=== PATIENT | male | born 1945 | race Caucasian/White ===

== ENCOUNTER 2016-09-11 12:56 | Inpatient (IN) | payer MEDICARE ==
[2016-09-11] MEDS ORDERED: IOPAMIDOL 300 (61%) 100 ML VIAL IV ONE (12:57)
[2016-09-11 13:45] LABS: ABSOLUTE NEUTROPHIL COUNT 7.4 K/mm3 (1.8-7.7); BASO # 0.1 K/mm3 (0.0-0.2); BASO % 0.5 % (0.2-1.0); EOS # 0.1 (0.0-0.5); EOS % 0.8 % (0.9-2.9); HEMATOCRIT 48.5 % (32.0-52.0); HEMOGLOBIN 16.6 gm/l (14.0-18.0); IMM NEUT% 0.3 % (0-1); LYMPH % 17.9 % (15-45); MEAN CELL VOLUME 90.5 fl (80.0-94.0); MEAN CORPUSCULAR HGB CONC 34.2 g/dl (33.0-37.0); MONO # 1.4 (0.0-0.8); NEUT % 67.5 % (43-75); PLATELET COUNT 196 K/mm3 (130-400); RED CELL DISTRIBUTION WIDTH 13.2 % (11.5-14.5)
[2016-09-11] MEDS ORDERED: ONDANSETRON 4 MG/2ML 2 ML VIAL ONE (13:45)
[2016-09-11] MEDS ORDERED: NALBUPHINE HCL 10 MG/ML AMP ONE (13:46)
[2016-09-11 13:57] LABS: ALB/GLOB RATIO 1.4 (>1.0); ALBUMIN 4.3 gm/dL (3.5-5.7); CALCIUM 9.5 mg/dL (8.6-10.3)
[2016-09-11 14:37] LABS: SPECIFIC GRAVITY 1.025 (1.001-1.030); URINE BILIRUBIN NEGATIVE (NEGATIVE); URINE BLOOD NEGATIVE (NEGATIVE); URINE GLUCOSE (UA) NEGATIVE (NEGATIVE); URINE LEUKOCYTE ESTERASE NEGATIVE (NEGATIVE); URINE NITRITE NEGATIVE (NEGATIVE); URINE PROTEIN TRACE (NEGATIVE); URINE UROBILINOGEN NORMAL (0-1 mg/dl)
[2016-09-11 14:40] LABS: URINE COLOR ORANGE
[2016-09-11 14:41] LABS: URINE APPEARANCE CLEAR
--- NOTE | 2016-09-11 14:42 | CT ---
CT ABDOMEN AND PELVIS WITH CONTRAST HISTORY: Low abdominal pain x3 days. TECHNIQUE: Following intravenous administration of 100 mL Isovue-300, contiguous axial images were acquired from the lung bases to the ischial tuberosities. Oral contrast was not administered. COMPARISON:None. FINDINGS: LUNG BASES: No gross airspace consolidation or pleural effusion. LIVER: Diffuse fatty infiltration, no dominant lesion SPLEEN: No focal lesion. PANCREAS: Fatty atrophy with no gross inflammatory change or dominant lesion. ADRENAL GLANDS: No mass effect. KIDNEYS: 1.9 cm left renal cyst. No collecting system dilatation. GALLBLADDER: Evidence of cholelithiasis without gross gallbladder wall thickening. BOWEL: Moderate fecal loading. Limited assessment of the distal colon due to decompression. No abnormal small bowel dilatation. Extensive changes of distal colonic diverticulosis. At the low anterior abdomen there is notable inflammatory stranding adjacent to a diverticulum with findings suspicious for microperforation. A small rim-enhancing collection is also identified at the right paramedian aspect, worrisome for diverticular abscess, measuring approximately 2.8 x 3.3 x 4.7 cm in size, a portion of which extends towards the ipsilateral inguinal canal. APPENDIX: Normal gas-filled appendix. PELVIC ORGANS: No gross mass effect. FREE FLUID: Soft tissue stranding associated with abscess and colonic inflammatory change. ABDOMINOPELVIC LYMPH NODES: No abnormally enlarged lymph nodes identified. ABDOMINAL AORTA: Minor atherosclerotic calcification without aneurysmal dilatation. OSSEOUS STRUCTURES: Findings of lower lumbar spondylosis, with notable disc and facet degeneration at the L4-5 and L5-S1 levels. INGUINAL REGIONS: Bilateral fatty inguinal hernia formation, with stranding on the right, which is likely inflammatory related to described probable abscess. ANTERIOR ABDOMINAL WALL: Small fatty umbilical hernia. IMPRESSION: 1. Findings compatible with acute sigmoid diverticulitis with evidence of associated right paramedian abscess measuring up to 4.7 cm in size, extending towards the right inguinal canal. Nonobstructive appearance of bowel. 2. Fatty infiltration of the liver. 3. Bilateral fatty inguinal hernia formation. 4. Lumbar spondylosis. Findings discussed with Dr. Coffey of the Emergency Medicine clinical service on 09/11/2016 at 1438 hours.
[2016-09-11] MEDS ORDERED: LACTATED RINGERS 1,000 ML ONE (15:25)
[2016-09-11] MEDS ORDERED: PIPERACILLIN-TAZO PREMIX BAG 50 ML IV ONE (15:26)
[2016-09-11] MEDS ORDERED: BLISTEX LIPSTICK 1 EACH TP PRN (16:01)
[2016-09-11] MEDS ORDERED: ACETAMINOPHEN 325 MG TABLET PO PRN (16:01)
[2016-09-11] MEDS ORDERED: ONDANSETRON 4 MG/2ML 2 ML VIAL IV PRN (16:01)
[2016-09-11] MEDS ORDERED: MENTHOL/CETYLPYRD 1 EACH LOZENGE PO PRN (16:01)
[2016-09-11] MEDS: MORPHINE SULFATE 2 MG/ML SYRINGE IV PRN (16:08)
[2016-09-11 16:17] VITALS: BMI 34.0
[2016-09-11] MEDS ORDERED: MORPHINE SULFATE 4 MG/ML SYRINGE IV PRN (16:31)
[2016-09-11] MEDS ORDERED: PUMP TUBING ONE (17:26)
[2016-09-11] MEDS: LACTATED RINGERS 1,000 ML IV SCH (17:34)
[2016-09-11] MEDS: ENALAPRILAT DIHYDRATE 1.25 MG/ML 1ML VIAL IV SCH (19:16)
[2016-09-11] MEDS: PIPERACILLIN-TAZO PREMIX BAG 3.375 G in Premix (D5W) 50 ml 1 EACH IV SCH (21:13)
--- NOTE | 2016-09-11 22:04 | HP ---
ROSA BARKLEY [id number] DATE OF SERVICE: 09/11/2016 CHIEF COMPLAINT: Abdominal pain. HISTORY OF PRESENT ILLNESS: Rosa Barkley is a 71-year-old male who presented to the emergency room with a three day history of lower abdominal pain. He has had multiple episodes of diverticulitis over his lifetime. He reports that he had a colovesical fistula twenty years ago that was treated with antibiotics. At that time he had air in his urine. Eventually that resolved. His recent episode started after eating some doss pie. He had some Cipro at home and he started taking that. He has not had any fever. He has not had any diarrhea or blood in his stool. He presented to the emergency room where he was evaluated. A CT scan showed sigmoid diverticulitis, with a 4.7 cm abscess to the right extending down into an area adjacent to a right inguinal hernia. Surgery was consulted and I asked radiology to percutaneously drain that, they have done so, and he has been admitted to the floor. PAST MEDICAL HISTORY: 1. Hypertension, not on medications. 2. Benign prostatic hypertrophy. 3. Recurring diverticulitis. PAST SURGICAL HISTORY: Includes transurethral resection of the prostate three months ago. CURRENT MEDICATIONS: 1. Cipro. 2. Aspirin 81 mg. 3. MiraLAX daily. 4. Probiotics daily. ALLERGIES TO MEDICATIONS: None known. FAMILY HISTORY: His grandfather had colon cancer. Father had esophageal cancer. SOCIAL HISTORY: He is . He is semi-retired as a pricing clerk. He does not smoke, drink alcohol or admit to drug use. REVIEW OF SYSTEMS: Constitutional - no complaints. HEENT - eyes, no complaints. Ears, nose and throat, no complaints. Cardiac - no complaints. Pulmonary - he has recurring trouble with bronchitis. GI - as above. - as above. Musculoskeletal - back pain. Neurologic - no complaints. Endocrine - no complaints. Hematologic - no complaints. Psychiatric - no complaints. PHYSICAL EXAMINATION: VITAL SIGNS: Temperature 98.7. Pulse 82. Blood pressure 177/90. Respirations are 20. His O2 sat is 95% on room air. GENERAL: He is awake and alert, appears in no acute distress. HEENT: Head is atraumatic and normocephalic. Eyes, pupils are equal. Sclera is nonicteric. Oropharynx, no exudate or erythema. NECK: Supple, without lymphadenopathy or thyromegaly. LUNGS: Clear to auscultation. Normal respiratory effort. HEART: Regular rate and rhythm. No murmurs are heard. ABDOMEN: Obese and mildly distended. He has tenderness in the lower abdomen, right greater than left. He does not have rebound tenderness or involuntary guarding. I do not appreciate a mass. He does have an umbilical hernia which is reducible. He has bilateral inguinal hernias, right greater than left. RECTAL: Exam not performed. EXTREMITIES: Without cyanosis, clubbing or edema. NEUROLOGIC: He is alert and oriented. Sensation is grossly intact in all extremities. PSYCHIATRIC: Shows no signs of anxiety or depression. He appears able to make informed medical decisions. LABORATORIES: Sodium 136, potassium 3.6, chloride 102, carbon dioxide is 25, BUN is 14, creatinine is 0.8 and glucose is 112. Total bilirubin is 1.8. AST is 26 and ALT is 49. Alkaline phosphatase is 55 and albumin is 4.3. White blood cell count 11.0, hemoglobin 16.6 and platelets are 196. Urinalysis has 2+ ketones, otherwise negative. IMAGING: CT scan images were reviewed. There is an abscess to the right of his sigmoid colon adjacent to an inguinal hernia that contains fat. There is no free air. ASSESSMENT: 1. Complicated diverticulitis with abscess. 2. Hypertension, untreated. 3. Umbilical hernia. 4. Bilateral inguinal hernias. At this point I do not see signs of peritonitis, other than pain. I have recommended that we continue with conservative treatment with intravenous antibiotics. I have started Zosyn. We will keep him NPO tonight. We will keep him hydrated with lactated Ringers. He reports that he has had a colonoscopy three years ago with Dr. Js samson in [place]. I would like to repeat his colonoscopy once this acute episode has resolved. He and his family would like to proceed with consideration of surgical intervention. I recommended that we do this on an elective basis when the acute inflammation has completely resolved. I expect that he is going to have significant adhesions to the bladder from the prior fistula. We will definitely need to get urology involved to place ureteral stents preoperatively and to perform a cystoscopy. With his hypertension, I would ask the Hospitalist Service to evaluate him from a medical standpoint. It sounds like he has had elevated blood pressures for a while, but has never reached a threshold to start medication. We will want to make sure that that is adequately controlled before considering surgery. I have told him we could most likely fix his umbilical hernia primarily at the time of an operation. The inguinal hernias would have to wait for another time because of the desired use for mesh. The patient expressed understanding of all these concepts and all questions were answered. cc: Dr. eJtt Whitfield in [place]
--- NOTE | 2016-09-11 23:29 | CONS ---
ROSA BARKLEY [id number] DATE OF ADMISSION: 09/11/2016 CHIEF COMPLAINT: Patient admitted for diverticulitis. Consultation requested regarding hypertension. HISTORY OF PRESENT ILLNESS: The patient is a 71-year-old male with a history of elevated blood pressure and recurrent diverticulitis over the previous twenty years who presented to the ER regarding a three day history of abdominal pain similar to previous episodes, along with low-grade fevers. He was admitted for acute diverticulitis, with a nearly 5 cm abscess on 09/11/2016. He underwent a CT-guided drainage procedure and is now on Zosyn. Dr. Coleman would like to have some help regarding management of elevated blood pressure while he is NPO. PAST MEDICAL HISTORY: Remarkable for: 1. Diverticulitis. 2. He reports he has had elevated blood pressures, with a possible diagnosis of hypertension, but has not been placed on the medicine before. 3. He has no history of stroke, no history of CHF, no history of myocardial infarction and no history of renal disease. PAST SURGICAL HISTORY: 1. He underwent a transurethral resection of the prostate approximately three months ago, and is now just recovering from that. 2. He has had cataract replacement. ALLERGIES: No known drug allergies. MEDICATIONS: 1. He takes MiraLAX. 2. He started on Cipro 500 mg twice a day on 09/09/2016, as he has a prescription that he will do this when he feels a flare. 3. He takes aspirin 81 mg daily. 4. He takes a probiotic. 4. He takes a multivitamin for seniors and a fish oil. 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 He has been for 52 years. He has four kids. No smoking and no alcohol. He goes to an independent [employer]ational [employer]. Hobbies include outdoors, fishing and hunting. He has had trips to [place], [place], [place] and [place]. He has no pets. FAMILY HISTORY: The patient was raised by a foster family. His father suffered from shellshock associated with World War II. His mom suffered from epilepsy and was unable to care for him; she in her 70's. REVIEW OF SYSTEMS: HEENT - eyes, ears, nose and throat have been okay. Neck - okay, some arthritis noted. Lungs - no complaints. Heart - no complaints. GI - abdomen, he has had the diverticulitis, first episode was about twenty years ago, and he notes it would flare a couple of times a year. He had his trip three months ago and is now recovering. Skin - no complaints. No rashes. Neurologic - no history of stroke. Memory is fairly good, but not as good as it used to be. CODE STATUS: He does not have a POLST form at this time, but understands that this would be important. PHYSICAL EXAMINATION: GENERAL: A very pleasant nontoxic male. VITAL SIGNS: Blood pressure is 177/90. Temperature 98.7. Pulse 82. Respirations 20. Saturation 95% on room air. HEENT: Head is normocephalic and atraumatic. Eyes are unremarkable. Pupils are equal, round and reactive to light. Ears are normal bilaterally. Hearing is not bad for age. Nose is unremarkable, without drainage. Oropharynx - dentition is generally very good. Mucous membranes are moist. NECK: Supple, without masses or thyromegaly. LUNGS: Clear to auscultation bilaterally. HEART: Regular rate and rhythm, without significant murmur. ABDOMEN: Bowel sounds are quiet. There is no rebound, but there is some tenderness noted. His right lower abdomen is discolored from the prep from the drainage procedure and a Band-Aid is present in the right lower quadrant. GENITALIA: Grossly normal male. EXTREMITIES: Legs unremarkable. Knees, ankles and feet are unremarkable, with good perfusion. No significant edema. Hands are unremarkable. NEUROLOGIC: Handshake is good. Speech is clear. He is generally oriented times three, although was not certain about the date, as he indicates he has been traveling recently and had lost track of the date. He is oriented to location and day just fine. No neurologic deficits noted. LABS: White count 11.0, hemoglobin 16.6 and platelets 196. MCV is 90.5. Sodium 136, potassium 3.6, chloride 102, C02 of 25, BUN of 14, creatinine 0.8 and glucose 112. Bilirubin 1.8. LFTs are normal. Urinalysis; 2+ ketones and specific gravity of 1.025, otherwise negative. IMAGING: CT shows acute sigmoid diverticulitis, with evidence of right paramedian abscess 4.7 cm in size. Fatty infiltration of the liver. Bilateral fatty inguinal hernia. Lumbar spondylosis. ASSESSMENT/PLAN: 1. Acute recurrent diverticulitis, now status post a drainage procedure today and on Zosyn. Appreciate radiology care and Dr. Coleman's care. Anticipate that he will undergo resection at a later date once the inflammation is resolved. 2. Hypertension. At this point while NPO, anticipate starting enalapril at a low dose, 1.25 IV every six hours, and could consider discharging on Lisinopril 10 mg daily when tolerating by mouth, assuming this medicine agrees with him fine. Blood pressure in ER shows 191/88. 3. Code status, encouraged him to follow-up with PCP. 4. Status post TURP procedure three months ago. The patient reports doing okay at this time. cc: Dr. Marco Whitfield in [place]
[2016-09-12] MEDS: MORPHINE SULFATE 2 MG/ML SYRINGE IV PRN ×2 (01:13→21:27)
[2016-09-12] MEDS: ENALAPRILAT DIHYDRATE 1.25 MG/ML 1ML VIAL IV SCH ×2 (02:15→07:41)
[2016-09-12] MEDS: PIPERACILLIN-TAZO PREMIX BAG 3.375 G in Premix (D5W) 50 ml 1 EACH IV SCH ×4 (03:12→21:23)
[2016-09-12 06:22] LABS: HEMATOCRIT 43.9 % (32.0-52.0); HEMOGLOBIN 15.1 gm/l (14.0-18.0); MEAN CELL VOLUME 90.7 fl (80.0-94.0); MEAN CORPUSCULAR HEMOGLOBIN 31.2 pg (27.0-31.0); MEAN CORPUSCULAR HGB CONC 34.4 g/dl (33.0-37.0)
[2016-09-12] MEDS: LACTATED RINGERS 1,000 ML IV SCH ×2 (07:38→22:54)
--- NOTE | 2016-09-12 07:51 | PDOC43 ---
- Subjective Chief Complaint: Diverticulitis, HTN Patient reports he didn't sleep so well, but otherwise doing ok. Pain about 50% better, and actually a little hungry this am. No problems from the blood pressure medication were noted. - Objective Vital Signs Temperature 98.2 F 09/12/16 07:22 Pulse Rate 77 09/12/16 07:22 Respiratory Rate 18 09/12/16 07:22 Blood Pressure 101/43 09/12/16 07:22 O2 Saturation by Pulse Oximetry 95 09/12/16 07:22 Oxygen Delivery Method Room Air Oxygen Flow Rate 0 Vital Signs Last 12 Hours Temp Pulse Resp BP Pulse Ox 09/12/16 07:22 98.2 F 77 18 101/43 95 09/12/16 05:43 98.7 F 76 18 128/76 94 09/12/16 02:15 81 144/72 09/12/16 01:04 77 16 125/77 09/12/16 00:00 98.8 F 77 16 137/62 95 09/11/16 20:45 16 Intake and Output 09/10/16 09/11/16 09/12/16 23:59 23:59 23:59 Intake Total 900 919 Output Total 750 Balance 900 169 General: Alert, Cooperative, No Acute Distress HEENT: Atraumatic Lungs: Clear to Auscultation Bilaterally, Normal Air Movement Cardiovascular: Regular Rate and Rhythm Abdomen: Soft, Tenderness (mild tenderness, more in lower abd, but improved from yesterday.), Normal Bowel Sounds, Non-Distended Extremities: Other (SCDs), No Edema, No Tenderness Neurological: Normal Speech Psych/Mental Status: Normal Mood Laboratory 09/12/16 05:30 09/12/16 05:30 09/12/16 05:30 MCH 31.2 H Estimated GFR 83 H Current Medications: Current meds reviewed in EMR. Active Medications Acetaminophen (Tylenol) 325 - 650 mg PO Q4H PRN PRN Reason: Mild Pain Or Temp > 101 F Benzocaine/Menthol (Cepacol) 1 each PO PRN PRN PRN Reason: Sore Throat Enalaprilat (Vasotec) 1.25 mg IV Q6H [facility] Last Admin: 09/12/16 02:15 Dose: 1.25 mg Lactated Ringer's (Lactated Ringers) 1,000 mls @ 75 mls/hr IV .[id number] [facility] Last Admin: 09/11/16 17:34 Dose: 75 mls/hr Piperacillin/Tazobactam/Dextrose 3.375 g/ Premix (D5W) 50 ml 50 mls @ 100 mls/ hr IV Q6H [facility] Last Admin: 09/12/16 03:12 Dose: 100 mls/hr Morphine Sulfate (Morphine Sulfate) 1 - 4 mg IV Q1H PRN PRN Reason: Pain (Severe/Breakthrough) Last Admin: 09/12/16 01:13 Dose: 1 mg Morphine Sulfate (Morphine Sulfate) 1 - 4 mg IV Q1H PRN PRN Reason: Pain (Severe/Breakthrough) Ondansetron HCl (Zofran) 4 mg IV Q4H PRN PRN Reason: Nausea/Vomiting Petrolatum/Paraffin/Mineral Oil (Blistex) 1 each TP PRN PRN PRN Reason: Dry and/or chapped lips Sodium Chloride (Normal Saline 10ml Flush) 10 - 50 ml IV PRN PRN PRN Reason: IV Flush Last Admin: 09/11/16 16:09 Dose: 10 ml Sodium Chloride (Normal Saline 10ml Flush) 10 ml IV Q8HR [facility] Last Admin: 09/12/16 02:20 Dose: Not Given - Problems: Assessment/Plan (1) Diverticulitis of large intestine with abscess without bleeding Status: AcuteAssessment/Plan: s/p drainage of abscess 09/11; appreciate interventional radiology On Zosyn, started 09/11 Dr Coleman considering for partial colectomy later when inflammation resolved. (2) HTN (hypertension) Qualifiers: Hypertension type: essential hypertension Qualifier Code: (I10) Essential (primary) hypertension Status: AcuteAssessment/Plan: Currently NPO, on 1.25 enalaprilat q6h When kavya PO, could switch to 10 mg lisinopril daily or consider 25 mg losartan daily. Both are generic and should be available. Slight personal preference for losartan. Creatinine 0.8->0.9; but not felt to be significant at this time. Consider recheck BMP in 1-4 weeks. VTE Prophylaxis: SCDs Disposition: Per Dr Coleman, but would anticipate going home when kavya PO well (fluids, antibiotics), with later surgical follow up.
--- NOTE | 2016-09-12 08:55 | PDOC43 ---
- Subjective Subjective: Reports Pain Tolerable, Denies Bowel Movement, Denies Nausea, Denies Fever - Objective Vital Signs Temperature 98.2 F 09/12/16 07:22 Pulse Rate 77 09/12/16 07:22 Respiratory Rate 18 09/12/16 07:30 Blood Pressure 101/43 09/12/16 07:22 O2 Saturation by Pulse Oximetry 95 09/12/16 07:22 Oxygen Delivery Method Room Air Oxygen Flow Rate 0 Laboratory 09/12/16 05:30 09/12/16 05:30 09/12/16 05:30 MCH 31.2 H Estimated GFR 83 H Active Medication Orders Category Date Time Status Enalaprilat Dihydrate [Vasotec] Med 09/11/16 18:30 Active 1.25 mg IV Q6H Morphine Sulfate Med 09/11/16 16:31 Active 1 - 4 mg IV Q1H PRN Sodium Chloride 0.9% Flush [Normal Saline 10ml Flush] Med 09/11/16 17:00 Active 10 ml IV Q8HR Intake and Output 09/11/16 09/12/16 09/13/16 06:59 06:59 06:59 Intake Total 1819 Output Total 750 Balance 1069 General: Alert, Oriented x3 Abdomen: Soft, Tenderness (RLQ still present. He winces but says it is 50% better.), Mild Distention Skin: Normal Color Psych/Mental Status: Normal Affect - Assessment/ Plan (1) Diverticulitis of large intestine with abscess without bleeding Status: AcuteAssessment/ Plan: Start liquids today. Continue zosyn. (2) HTN (hypertension) Qualifiers: Hypertension type: essential hypertension Qualifier Code: (I10) Essential (primary) hypertension Status: AcuteAssessment/ Plan: Better on medication. Appreciate hospitalists input. Discussed with Dr. Morgan.
[2016-09-12] MEDS ORDERED: ENOXAPARIN SODIUM 40 MG/0.4 ML SYRINGE SUB-Q SCH (09:00)
[2016-09-13] MEDS: PIPERACILLIN-TAZO PREMIX BAG 3.375 G in Premix (D5W) 50 ml 1 EACH IV SCH ×2 (04:15→09:02)
[2016-09-13 06:12] LABS: HEMATOCRIT 43.7 % (32.0-52.0); HEMOGLOBIN 15.2 gm/l (14.0-18.0); MEAN CELL VOLUME 88.5 fl (80.0-94.0); MEAN CORPUSCULAR HEMOGLOBIN 30.8 pg (27.0-31.0); MEAN CORPUSCULAR HGB CONC 34.8 g/dl (33.0-37.0); RED CELL DISTRIBUTION WIDTH 12.5 % (11.5-14.5)
[2016-09-13 07:07] VITALS: BP 146/70
--- NOTE | 2016-09-13 08:20 | PDOC43 ---
- Subjective Chief Complaint: Diverticulitis, HTN Subjective: Denies Shortness of Breath, Denies Chest Pain, Denies Vomiting, Denies Fever - Objective Vital Signs Temperature 98.5 F 09/13/16 06:00 Pulse Rate 70 09/13/16 06:00 Respiratory Rate 18 09/13/16 06:00 Blood Pressure 146/70 09/13/16 06:00 O2 Saturation by Pulse Oximetry 97 09/13/16 06:00 Oxygen Delivery Method Room Air Oxygen Flow Rate 0 Intake and Output 09/12/16 09/13/16 09/14/16 06:59 06:59 06:59 Intake Total 1819 1286 Output Total 750 2250 Balance 1069 -964 General: Alert, Oriented x3, Cooperative, No Acute Distress HEENT: Mucous membr. moist/pink Lungs: Clear to Auscultation Bilaterally Cardiovascular: Regular Rate and Rhythm Extremities: No Edema Laboratory 09/13/16 05:30 09/13/16 05:30 09/13/16 05:30 Estimated GFR 95 H Current Medications: Current meds reviewed in EMR. - Problems: Assessment/Plan (1) HTN (hypertension) Qualifiers: Hypertension type: essential hypertension Qualifier Code: (I10) Essential (primary) hypertension Status: AcuteAssessment/Plan: Discharging today. Starting on Lisinopril 10mg daily. Consider recheck BMP in 1 -4 weeks. (2) Diverticulitis of large intestine with abscess without bleeding Status: AcuteAssessment/Plan: s/p drainage of abscess 09/11; appreciate interventional radiology On Zosyn, started 09/11 Dr Coleman considering for partial colectomy later when inflammation resolved. VTE Prophylaxis: SCDs Disposition: Per Dr Coleman, patient is discharging today.
--- NOTE | 2016-09-13 10:36 | DS ---
DATE OF ADMISSION: 09/11/2016 DATE OF DISCHARGE: 09/13/2016 HISTORY: This is a 71-year-old male who presented to the emergency room with a three-day history of lower abdominal pain. He had multiple episodes of diverticulitis in the past. He actually had a history of colovesical fistula 20 years ago. He has antibiotics at home that he normally takes when his diverticulitis flares up. He started Cipro three days ago. He has not had any fever. He has not had any blood in his stool. He was evaluated in the emergency room and a CT scan showed acute sigmoid diverticulitis with a 4.7 cm abscess to the right. PAST MEDICAL HISTORY: 1. Hypertension; not on medication. 2. Benign prostatic hypertrophy. PAST SURGICAL HISTORY: Transurethral resection of the prostate three months ago. MEDICATIONS: 1. Cipro. 2. Aspirin. 3. MiraLax. 4. Probiotics. ALLERGIES: NONE KNOWN. HOSPITAL COURSE: The patient had no signs of peritonitis other than abdominal pain. He underwent ultrasound guided drainage of the abscess cavity directly adjacent to the sigmoid colon. The fluid was sent for cultures. At the time of discharge, no bacteria was growing. He was started on Zosyn. By the first hospital day, he was without fever. His pain had improved. He was started on liquids. With that, he had no nausea or vomiting. He was passing flatus but had no bowel movement. At the time of discharge, his pain had improved but was still present. He was without fever. He had a normal white count. He was discharged to home in stable condition. The patient has a history of hypertension and was not on medications. His initial blood pressure on hospitalization was 177/90. The hospitalist service was consulted for management of his blood pressure. He was started on enalapril. He did have improvement in his blood pressures following that. He had no dizziness or other symptoms. FINAL DIAGNOSIS: 1. Complicated sigmoid diverticulitis with abscess. 2. Hypertension. 3. Umbilical hernia. 4. Bilateral inguinal hernias. PLAN: He is to followup in my office within two weeks. He is also to followup with his primary care doctor within two weeks to discuss his blood pressure. He is to resume his probiotics, his aspirin. He is to avoid MiraLax and to not take Cipro. He was given a prescription for Lisinopril 10 mg to take daily, amoxicillin 875 mg to take twice daily, metronidazole 500 mg three times a day. His antibiotics were for a 10-day course. He was given some oxycodone to take if needed for pain. BERNARD/alexx [id number]
--- NOTE | 2016-09-14 07:57 | US ---
ULTRASOUND-GUIDED ASPIRATION HISTORY: Suspected diverticular abscess. Sonography of the patient's lower abdomen reveals fluid collection of an arcuate nature measuring 2.0 x 2.0 x 5.5 cm in size, corresponding to abnormal fluid collection identified on prior CT imaging. The risks and benefits of the procedure were discussed with the patient, who appeared to understand and wished to proceed. Overlying soft tissues were prepped and draped in standard sterile fashion and infiltrated with 1% lidocaine. A scalpel neck was made, and a [employer] catheter inserted into the collection under real-time sonographic guidance. Approximately 9 mL of yellow nonturbid fluid was acquired and sent to laboratory for analysis. A drain was not deployed given the small size of the collection. A sterile bandage was applied. The patient tolerated the procedure well with no immediate complications noted. IMPRESSION: Ultrasound-guided aspiration of right lower quadrant fluid collection as above. No immediate competitions evident.
== END 2016-09-13 10:25 | disposition home or self-care (01) | DRG 392 ==
LOC: ED 12:56 → MS 15:09
PROVIDERS: ADMIT Surgery; ATTEND Surgery
PROC: 0D9 Gastrointestinal System, Drainage (ICD-10-PCS; principal; 2016-09-11)
DX: K57.20 Diverticulitis of large intestine with perforation and abscess without bleeding (principal); I10 Essential (primary) hypertension; N40.0 Benign prostatic hyperplasia without lower urinary tract symptoms; K42.9 Umbilical hernia without obstruction or gangrene; K40.20 Bilateral inguinal hernia, without obstruction or gangrene, not specified as recurrent; M47.9 Spondylosis, unspecified